=== PATIENT | female | born 1955 | race Caucasian/White ===

== ENCOUNTER 2025-06-23 09:34 | Inpatient (IN) ==
[2025-06-23] MEDS: 0.9 % SODIUM CHLORIDE 1,000 ML IV SCH (10:03)
[2025-06-23] MEDS: ACETAMINOPHEN 1,000 MG/100 ML BAG IV ONE (10:04)
[2025-06-23 10:26] LABS: Basophils # (Auto) 0.02 K/mcL (0.00-0.30); Basophils % (Auto) 0.1 % (0.0-2.0); Eosinophils # (Auto) 0 K/mcL (0.00-0.70); Eosinophils % (Auto) 0 % (0.0-7.0); Hematocrit 48.7 % (34.1-44.9); Hemoglobin 16.1 g/dL (11.2-15.7); Lymphocytes # (Auto) 1.52 K/mcL (1.50-4.80); Lymphocytes % (Auto) 8.7 % (15.5-49.0); Mean Corpuscular HGB Conc 33.1 g/dL (31.0-36.0); Monocytes # (Auto) 1.36 K/mcL (0.10-0.90); Monocytes % (Auto) 7.8 % (1.0-12.0); Neutrophils % (Auto) 83.1 % (38.0-78.0); Platelet Count 139 K/mcL (140-440); RBC 5.29 M/mcL (3.59-5.38); WBC 17.5 K/mcL (4.5-11.0)
[2025-06-23] MEDS: 0.9 % SODIUM CHLORIDE 1,000 ML IV ONE ×2 (11:14→16:55)
[2025-06-23] MEDS: CEFEPIME 1 GM VIAL IV ONE (11:14)
[2025-06-23] MEDS: AZITHROMYCIN 500 MG in DEXTROSE 5% IN WATER 250 ML IV ONE (11:18)
[2025-06-23 11:25] LABS: Alcohol,Blood < 0.010 g/dL (<0.010)
[2025-06-23 11:35] LABS: ALT/SGPT 15 U/L (<40); AST/SGOT 18 U/L (<32); Albumin 4.1 gm/dL (3.2-5.2); Albumin/Globulin Ratio 1.6 (1.0-2.3); Alkaline Phosphatase 108 U/L (39-117); Anion Gap 15.0 (8.0-16.0); Bilirubin,Total 1.4 mg/dL (0.1-1.0); Blood Urea Nitrogen 10 mg/dL (8-23); Calcium 9.1 mg/dL (8.6-10.4); Carbon Dioxide 25 mmol/L (22-30); Chloride 102 mmol/L (96-108); Globulin 2.5 gm/dL (2.2-3.7); Glucose 114 mg/dL (70-105); Potassium 3.0 mmol/L (3.3-5.1); Sodium 142 mmol/L (133-145)
[2025-06-23 11:36] LABS: Thyroid Stimulating Hormone 3.23 uIU/mL (0.27-5.01)
[2025-06-23] MEDS: CLOPIDOGREL 300 MG TABLET PO ONE (12:01)
[2025-06-23] MEDS: ASPIRIN 81 MG TAB.CHEW CHEWED ONE (12:01)
[2025-06-23] MEDS: KETOROLAC 15 MG/ML VIAL IV ONE (15:04)
[2025-06-23] MEDS: 0.9 % SODIUM CHLORIDE 500 ML IV ONE (15:04)
[2025-06-23 15:12] LABS: C-Reactive Protein 11.00 mg/dL (0.03-0.80)
[2025-06-23] MEDS ORDERED: POLYETHYLENE GLYCOL 3350 17 GM PACKET PO PRN (16:55)
[2025-06-23] MEDS ORDERED: MAGNESIUM SULFATE 2 GM/50 ML BAG IV PRN (16:55)
[2025-06-23] MEDS ORDERED: METOCLOPRAMIDE 10 MG/2 ML VIAL IV PRN (16:55)
[2025-06-23] MEDS ORDERED: POTASSIUM CHLORIDE 40 MEQ in DEXTROSE 5% IN WATER 500 ML IV PRN (16:55)
[2025-06-23] MEDS ORDERED: SENNOSIDES 1 TABLET PO PRN (16:55)
[2025-06-23] MEDS ORDERED: POTASSIUM CHLORIDE 20 MEQ TABLET PO PRN ×2 (16:55)
[2025-06-23] MEDS ORDERED: DIAZEPAM 5 MG TABLET PO PRN (17:54)
[2025-06-23] MEDS ORDERED: traMADol (PP) 50 MG TABLET (#4) PO PRN (17:54)
[2025-06-23] MEDS ORDERED: PROMETHAZINE 25 MG TABLET PO PRN (17:54)
[2025-06-23] MEDS ORDERED: ENALAPRILAT 1.25 MG/ML VIAL IV PRN (17:55)
[2025-06-23] MEDS: POTASSIUM CHLORIDE 10 MEQ/100 ML BAG IV SCH (20:13)
[2025-06-23] MEDS: DOCUSATE SODIUM 100 MG CAPSULE PO SCH (20:13)
[2025-06-23] MEDS: cefTRIAXone 1 GM VIAL IV SCH (20:13)
[2025-06-23] MEDS: ACETAMINOPHEN 325 MG TABLET PO PRN (20:41)
[2025-06-23] MEDS: 0.9 % SODIUM CHLORIDE 10 ML SYRINGE IV SCH (20:48)
[2025-06-24] MEDS: tiZANidine 4 MG TABLET PO PRN (03:06)
[2025-06-24] MEDS: POTASSIUM CHLORIDE 40 MEQ in DEXTROSE 5% IN WATER 500 ML IV ONE (05:23)
[2025-06-24 06:29] LABS: ALT/SGPT 11 U/L (<40); AST/SGOT 16 U/L (<32); Albumin 2.9 gm/dL (3.2-5.2); Albumin/Globulin Ratio 1.4 (1.0-2.3); Alkaline Phosphatase 90 U/L (39-117); Anion Gap 9.0 (8.0-16.0); Bilirubin,Direct 0.5 mg/dL (<0.3); Bilirubin,Total 1.2 mg/dL (0.1-1.0); Blood Urea Nitrogen 12 mg/dL (8-23); Calcium 8.0 mg/dL (8.6-10.4); Carbon Dioxide 22 mmol/L (22-30); Chloride 112 mmol/L (96-108); Globulin 2.1 gm/dL (2.2-3.7); Glucose 113 mg/dL (70-105); Phosphorous 2.3 mg/dL (2.5-4.5); Potassium 4.0 mmol/L (3.3-5.1); Sodium 143 mmol/L (133-145); Triglycerides 75 mg/dL (<150); Uric Acid 3.2 mg/dL (2.5-8.0)
[2025-06-24 06:31] LABS: Basophils # (Auto) 0.02 K/mcL (0.00-0.30); Basophils % (Auto) 0.1 % (0.0-2.0); Eosinophils # (Auto) 0 K/mcL (0.00-0.70); Eosinophils % (Auto) 0 % (0.0-7.0); Hematocrit 43.5 % (34.1-44.9); Hemoglobin 13.9 g/dL (11.2-15.7); Lymphocytes # (Auto) 1.60 K/mcL (1.50-4.80); Lymphocytes % (Auto) 10.5 % (15.5-49.0); Mean Corpuscular HGB Conc 32.0 g/dL (31.0-36.0); Monocytes # (Auto) 0.78 K/mcL (0.10-0.90); Monocytes % (Auto) 5.1 % (1.0-12.0); Neutrophils % (Auto) 83.2 % (38.0-78.0); Platelet Count 102 K/mcL (140-440); RBC 4.50 M/mcL (3.59-5.38); WBC 15.2 K/mcL (4.5-11.0)
[2025-06-24] MEDS: SERTRALINE 100 MG TABLET PO SCH (08:58)
[2025-06-24] MEDS: ENOXAPARIN 40 MG/0.4 ML SYRINGE SQ SCH (09:01)
[2025-06-24] MEDS: IPRATROPIUM/ALBUTEROL 3 ML AMPUL.NEB NEB PRN (09:53)
[2025-06-24] MEDS: ONDANSETRON 4 MG/2 ML VIAL IV PRN (10:26)
[2025-06-24] MEDS: AZITHROMYCIN 500 MG in DEXTROSE 5% IN WATER 250 ML IV SCH (12:19)
[2025-06-25 06:06] LABS: Basophils # (Auto) 0.02 K/mcL (0.00-0.30); Basophils % (Auto) 0.2 % (0.0-2.0); Eosinophils # (Auto) 0.06 K/mcL (0.00-0.70); Eosinophils % (Auto) 0.6 % (0.0-7.0); Hematocrit 38.3 % (34.1-44.9); Hemoglobin 12.3 g/dL (11.2-15.7); Lymphocytes # (Auto) 0.97 K/mcL (1.50-4.80); Lymphocytes % (Auto) 9.1 % (15.5-49.0); Mean Corpuscular HGB Conc 32.1 g/dL (31.0-36.0); Monocytes # (Auto) 0.43 K/mcL (0.10-0.90); Monocytes % (Auto) 4.0 % (1.0-12.0); Neutrophils % (Auto) 85.8 % (38.0-78.0); Platelet Count 95 K/mcL (140-440); RBC 4.04 M/mcL (3.59-5.38); WBC 10.7 K/mcL (4.5-11.0)
[2025-06-25 06:19] LABS: ALT/SGPT 11 U/L (<40); AST/SGOT 11 U/L (<32); Albumin 3.0 gm/dL (3.2-5.2); Albumin/Globulin Ratio 1.3 (1.0-2.3); Alkaline Phosphatase 86 U/L (39-117); Anion Gap 9.0 (8.0-16.0); Bilirubin,Direct 0.4 mg/dL (<0.3); Bilirubin,Total 0.8 mg/dL (0.1-1.0); Blood Urea Nitrogen 17 mg/dL (8-23); Calcium 8.3 mg/dL (8.6-10.4); Carbon Dioxide 23 mmol/L (22-30); Chloride 108 mmol/L (96-108); Globulin 2.4 gm/dL (2.2-3.7); Glucose 98 mg/dL (70-105); Phosphorous 2.2 mg/dL (2.5-4.5); Potassium 3.3 mmol/L (3.3-5.1); Sodium 140 mmol/L (133-145); Triglycerides 140 mg/dL (<150); Uric Acid 3.7 mg/dL (2.5-8.0)
[2025-06-25 07:23] LABS: RBC Morphology NORMAL (Normal)
[2025-06-25] MEDS: NEUTRA PHOS 1 PACKET PO SCH (09:22)
[2025-06-25] MEDS: 0.9 % SODIUM CHLORIDE 500 ML IV SCH (10:30)
[2025-06-25] MEDS: BISMUTH SUBSALICYLATE 15 ML ORAL.SUSP PO PRN (10:31)
[2025-06-26 05:43] LABS: Basophils # (Auto) 0.02 K/mcL (0.00-0.30); Basophils % (Auto) 0.3 % (0.0-2.0); Eosinophils # (Auto) 0.09 K/mcL (0.00-0.70); Eosinophils % (Auto) 1.3 % (0.0-7.0); Hematocrit 38.1 % (34.1-44.9); Hemoglobin 12.3 g/dL (11.2-15.7); Lymphocytes # (Auto) 1.31 K/mcL (1.50-4.80); Lymphocytes % (Auto) 19.3 % (15.5-49.0); Mean Corpuscular HGB Conc 32.3 g/dL (31.0-36.0); Monocytes # (Auto) 0.44 K/mcL (0.10-0.90); Monocytes % (Auto) 6.5 % (1.0-12.0); Neutrophils % (Auto) 72.2 % (38.0-78.0); Platelet Count 100 K/mcL (140-440); RBC 3.96 M/mcL (3.59-5.38); WBC 6.8 K/mcL (4.5-11.0)
[2025-06-26 05:53] LABS: ALT/SGPT 14 U/L (<40); AST/SGOT 15 U/L (<32); Albumin 3.1 gm/dL (3.2-5.2); Albumin/Globulin Ratio 1.2 (1.0-2.3); Alkaline Phosphatase 78 U/L (39-117); Anion Gap 9.0 (8.0-16.0); Bilirubin,Direct 0.3 mg/dL (<0.3); Bilirubin,Total 0.6 mg/dL (0.1-1.0); Blood Urea Nitrogen 7 mg/dL (8-23); Calcium 8.3 mg/dL (8.6-10.4); Carbon Dioxide 25 mmol/L (22-30); Chloride 109 mmol/L (96-108); Globulin 2.5 gm/dL (2.2-3.7); Glucose 96 mg/dL (70-105); Phosphorous 3.2 mg/dL (2.5-4.5); Potassium 3.3 mmol/L (3.3-5.1); Sodium 143 mmol/L (133-145); Triglycerides 138 mg/dL (<150); Uric Acid 3.3 mg/dL (2.5-8.0)
== END 2025-06-27 12:40 | DRG 871 ==
LOC: ED 09:34 → MEDSUR 16:24
PROVIDERS: ADMIT Internal Medicine; ATTEND Internal Medicine